=== PATIENT | female | born 1980 | race African-American/Black ===

== ENCOUNTER 2017-09-27 16:05 | Emergency (ER) | payer SELFPAY ==
[2017-09-27] MEDS: IV NORMAL SALINE 1000ML BAG 1,000 ML IV (17:08)
[2017-09-27 17:13] LABS: BILIRUBIN,URINE NEGATIVE (NEG); CLARITY,URINE CLOUDY; COLOR,URINE RED; GLUCOSE,URINE NEGATIVE (NEG); NITRITE,URINE NEGATIVE (NEG); PROTEIN,URINE 30 mg/dL (NEG-TRACE)
[2017-09-27 17:15] LABS: ADD MAN DIFF? NO
[2017-09-27 17:18] LABS: BARBITURATES NEG (NEG); BASO % 1 % (0-3); BENZODIAZEPINES NEG (NEG); CANNABINOIDS POS (NEG); COCAINE POS (NEG); EOS # 0.2 x10^3/uL (0.0-0.7); EOS % 2 % (0-3); HEMATOCRIT 42.2 % (36.0-47.0); HEMOGLOBIN 14.3 g/dL (12.0-15.5); LYMPH % 29 % (24-48); MEAN CORPUSCULAR HEMOGLOBIN 31 pg (25-35); MEAN CORPUSCULAR HGB CONC 34 g/dL (31-37); MEAN CORPUSCULAR VOLUME 90 fL (79-100); METHADONE NEG (NEG); MONO # 0.6 x10^3/uL (0.0-1.1); MONO % 8 % (0-9); NEUT # 4.3 x10^3uL (1.8-7.7); NEUT % 60 % (31-73); OPIATES NEG (NEG); PHENCYCLIDINE NEG (NEG); PLATELET COUNT 238 x10^3/uL (140-400); RED BLOOD COUNT 4.66 x10^6/uL (3.50-5.40); RED CELL DISTRIBUTION WIDTH 15.3 % (11.5-14.5); WHITE BLOOD COUNT 7.1 x10^3/uL (4.0-11.0)
[2017-09-27 17:19] LABS: AMPHETAMINE/METHAMPHETAMINE NEG (NEG); ETHANOL, URINE NEG (NEG)
[2017-09-27 17:29] LABS: ETHANOL < 10 mg/dL (0-10)
[2017-09-27 17:29] LABS: ANION GAP 6 (6-14); BLOOD UREA NITROGEN 8 mg/dL (7-20); BUN/CREATININE RATIO 9 (6-20); CALCIUM 8.7 mg/dL (8.5-10.1); CARBON DIOXIDE 30 mmol/L (21-32); CHLORIDE 106 mmol/L (98-107); CREATININE 0.9 mg/dL (0.6-1.0); GFR 84.3; GLUCOSE 106 mg/dL (70-99); POTASSIUM 3.5 mmol/L (3.5-5.1); SODIUM 142 mmol/L (136-145)
[2017-09-27 17:32] LABS: BACTERIA,URINE MANY /HPF (0-FEW); RBC,URINE TNTC /HPF (0-2); SQUAMOUS EPITHELIAL CELL,UR MANY /LPF; WBC,URINE 0 /HPF (0-4)
[2017-09-27 17:35] LABS: ALBUMIN 3.4 g/dL (3.4-5.0); ALBUMIN/GLOBULIN RATIO 0.8 (1.0-1.7); ALK PHOS 58 U/L (46-116); ALT (SGPT) 17 U/L (14-59); AST (SGOT) 10 U/L (15-37); LIPASE 122 U/L (73-393); TOTAL BILIRUBIN 0.3 mg/dL (0.2-1.0); TOTAL PROTEIN 7.6 g/dL (6.4-8.2)
[2017-09-27 17:38] LABS: TROPONINI < 0.017 ng/mL (0.000-0.055)
[2017-09-27 17:42] LABS: THYROID STIM HORMONE (TSH) 0.978 uIU/mL (0.358-3.74)
[2017-09-27 17:44] LABS: NT-PRO BNP 26 pg/mL (0-124)
[2017-09-27 17:44] LABS: CKMB INDEX 0.4 % (0-4); CKMB MASS 0.8 ng/mL (0.0-3.6); CREATINE KINASE 197 U/L (26-192)
[2017-09-27 18:12] LABS: NEG OBC UR NEG; POS OBC UR POS; U PREG PATIENT NEGATIVE (NEG)
[2017-09-27 19:07] LABS: LACTIC ACID 0.5 mmol/L (0.4-2.0)
== END 2017-09-27 20:06 | disposition home or self-care (01) ==
LOC: ER 20:06
DX: G43.709 Chronic migraine without aura, not intractable, without status migrainosus (principal); F12.10 Cannabis abuse, uncomplicated; F14.10 Cocaine abuse, uncomplicated
CPT/HCPCS: 36415; 70450; 71045; 80053; 80307; 81001; 81025; 82553; 83605; 83690; 83735; 83880; 84443; 84484; 85025; 93005; 99285-25; G0480; J7030

== ENCOUNTER 2018-01-24 04:41 | Emergency (ER) | payer SELFPAY ==
[~2018-01-24] VITALS: Ht 170.2 cm; Wt 77.1 kg
[~2018-01-24 04:41] MED LIST: SUMA50TA3 PO
[2018-01-24 04:54] VITALS: BP 133/81
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
== END 2018-01-24 05:44 | disposition home or self-care (01) ==
LOC: ER 04:41
DX: S62.325A Displaced fracture of shaft of fourth metacarpal bone, left hand, initial encounter for closed fracture (principal); G43.909 Migraine, unspecified, not intractable, without status migrainosus; Z88.8 Allergy status to other drugs, medicaments and biological substances; Z88.6 Allergy status to analgesic agent; Y08.89XA Assault by other specified means, initial encounter; Y93.89 Activity, other specified; Y92.89 Other specified places as the place of occurrence of the external cause; Y99.8 Other external cause status
CPT/HCPCS: 29130; 73130; 99284

== ENCOUNTER 2020-04-28 17:31 | Emergency (ER) | payer SELFPAY ==
[~2020-04-28] VITALS: Ht 170.2 cm; Wt 95.0 kg
[2020-04-28 17:50] VITALS: BP 121/75
[2020-04-28] MEDS ORDERED: HYDR-3164 PO (17:50)
--- NOTE | 2020-04-28 17:51 | PHYS DOC ---
Past Medical History Past Medical History: Migraines Past Surgical History: No Surgical History Smoking Status: Current Every Day Smoker Alcohol Use: None Drug Use: Cocaine, Marijuana General Adult EDM: Chief Complaint: LOWER EXT PAIN HPI: HPI: Patient is a 39 year old female who presents with a proximally 4-day history of left-sided knee pain. Patient denies any trauma but states she has had 4-day history of pain on the left medial knee that has gotten worse over the last 24 hours. Pain is worse with walking and palpation. Patient denies any fever, chills, cough or shortness of breath. Pain is currently 9 out of 10 with movement and improved with rest. Pain is nonradiating. Pain is throbbing in nature. Review of Systems: Review of Systems: Constitutional: Denies fever or chills. [] Eyes: Denies change in visual acuity. [] HENT: Denies nasal congestion or sore throat. [] Respiratory: Denies cough or shortness of breath. [] Cardiovascular: Denies chest pain or edema. [] GI: Denies abdominal pain, nausea, vomiting, bloody stools or diarrhea. [] : Denies dysuria. [] Musculoskeletal: Denies back pain but has left knee pain Integument: Denies rash. [] Neurologic: Denies headache, focal weakness or sensory changes. [] Endocrine: Denies polyuria or polydipsia. [] Lymphatic: Denies swollen glands. [] Psychiatric: Denies depression or anxiety. [] Heart Score: Risk Factors: Risk Factors: DM, Current or recent (<one month) smoker, HTN, HLP, family history of CAD, obesity. Risk Scores: Score 0 - 3: 2.5% MACE over next 6 weeks - Discharge Home Score 4 - 6: 20.3% MACE over next 6 weeks - Admit for Clinical Observation Score 7 - 10: 72.7% MACE over next 6 weeks - Early Invasive Strategies Allergies: Allergies: Allergies Coded Allergies Type Severity Reaction Last Updated Verified guaifenesin Allergy Intermediate 01/24/18 Yes ibuprofen Allergy Intermediate 01/24/18 Yes pseudoephedrine Allergy Intermediate 01/24/18 Yes Physical Exam: PE: Constitutional: Well developed, well nourished, no acute distress, non-toxic appearance. [] HENT: Normocephalic, atraumatic, bilateral external ears normal, no trismus nose normal. [] Eyes: PERRLA, EOMI, conjunctiva normal, no discharge. [] Neck: Normal range of motion, no tenderness, supple, no stridor. [] Cardiovascular:Heart rate regular rhythm, peripheral pulses intact cap refills less than 2 seconds Lungs & Thorax: Bilateral breath sounds clear, no respiratory distress Abdomen: soft, no tenderness, no masses, no pulsatile masses. [] Skin: Warm, dry, no erythema, no rash. [] Back: No tenderness, no CVA tenderness. [] Extremities: , no cyanosis, no clubbing, ROM intact, no edema. [] Mild swelling to the left infrapatellar bursa, more pronounced medially. No significant joint effusion, mild limited range of motion due to pain. No warmth or erythema, neurovascular intact distally Neurologic: Alert and oriented X 3, normal motor function, normal sensory function, no focal deficits noted. [] Psychologic: Affect normal, judgement normal, mood normal. [] EKG: EKG: [] Radiology/Procedures: Radiology/Procedures: [] Course & Med Decision Making: Course & Med Decision Making Pertinent Labs and Imaging studies reviewed. (See chart for details) [] 39-year-old female presents with left knee pain. Patient has what appears to be infrapatellar bursitis on exam. No evidence of septic arthritis. Patient will be treated with pain medicines, ice and Ryan wrap. Patient to follow-up with Ortho. I would like patient be on anti-inflammatories but she has ibuprofen allergy so we will just treat her with pain medicine. Yuriy Disclaimer: Yuriy Disclaimer: This electronic medical record was generated, in whole or in part, using a voice recognition dictation system. Departure Departure Impression: Primary Impression: Infrapatellar bursitis of left knee Disposition: 01 DC HOME SELF CARE/HOMELESS Condition: STABLE Referrals: NO PCP (PCP) RAY ASHLEY II, MD 2-3 days Patient Instructions: Bursitis, Prepatellar Bursitis with Rehab-SportsMed Additional Instructions: EMERGENCY DEPARTMENT GENERAL DISCHARGE INSTRUCTIONS THANK YOU for coming to Emergency Department (ED) today and trusting us with your care. We trust that you had a positive experience in our Emergency Department. If you wish to speak to the department Management you can contact the produce department supervisor at . YOUR FOLLOW UP INSTRUCTIONS ARE FOLLOWS: Do you have a private doctor? If you do not have a private doctor, please ask for a resource list of physicians or clinics that may be able to assist you with follow up care. The Emergency Physician has interpreted your x-rays. The X-ray specialist will also review them. If there is a change in the findings you will be notified in 48 hours when at all possible. A lab test or lab culture may have been done, your results will be reviewed and you will be notified if you need a change in treatment. ADDITIONAL INSTRUCTIONS AND INFORMATION Your care today has been supervised by a physician who is specially trained in emergency care. Many problems require more than one evaluation for a complete diagnosis and treatment. We recommend that you schedule your follow up appointment as recommended to ensure complete treatment of your illness or injury. If you are unable to obtain follow up care and continue to have a problem, or if your condition worsens we recommend that you return to the ED. We are not able to safely determine your condition over the phone nor are we able to give sound medical advice over the phone. For these safety reasons, if you call for medical advice we will ask you to come to the ED for further evaluation If you have any questions regarding these discharge instructions please call the ED at . SAFETY INFORMATION In the interest of safety, wellness, and injury prevention; we encourage you to wear your seatbelt, if you smoke; quit smoking, and we encourage your family to use protective helmet for bicycling and other sporting events that present an increased risk for head injury. IF YOUR SYMPTOMS WORSEN OR NEW SYMPTOMS DEVELOP, OR YOU HAVE CONCERNS ABOUT YOUR CONDITION; OR IF YOUR CONDITION WORSENS WHILE YOU ARE WAITING FOR YOUR FOLLOW UP FARHAN OINTMENT; EITHER CONTACT YOUR PRIMARY CARE DOCTOR, THE PHYSICIAN WHOSE NAME AND NUMBER YOU WERE GIVEN, OR RETURN TO THE ED IMMEDIATELY. Scripts Hydrocodone/Apap 5-325 (NORCO 5-325 TABLET) 1 Each Tablet 1-2 EACH PO PRN Q6HRS PRN for PAIN, #12 as needed for pain Prov: SUKHDEV VAUGHN MD 04/28/20 SUKHDEV VAUGHN MD Apr 28, 2020 17:50
== END 2020-04-28 18:00 | disposition home or self-care (01) ==
LOC: ER 17:31
DX: M70.52 Other bursitis of knee, left knee (principal); Y93.89 Activity, other specified; F17.200 Nicotine dependence, unspecified, uncomplicated; G43.909 Migraine, unspecified, not intractable, without status migrainosus; Z88.8 Allergy status to other drugs, medicaments and biological substances
CPT/HCPCS: 99283

== ENCOUNTER 2020-09-23 18:17 | Emergency (ER) | payer OTHER ==
[~2020-09-23] VITALS: Ht 170.2 cm; Wt 109.1 kg
[~2020-09-23 18:17] MED LIST changes: +HYDR-3164 PO
[2020-09-23] MEDS ORDERED: CYCL10TA2 PO ×2 (20:36→20:50)
[2020-09-23] MEDS ORDERED: PRED20TA PO ×2 (20:36→20:50)
--- NOTE | 2020-09-23 20:36 | PHYS DOC ---
Past Medical History Past Medical History: Migraines Additional Past Medical Histor: RECOVERING NARCOTIC ADDICTION Past Surgical History: No Surgical History Smoking Status: Current Every Day Smoker Alcohol Use: None Drug Use: Cocaine, Marijuana General Adult EDM: Chief Complaint: BACK PAIN OR INJURY HPI: HPI: Patient is a 40 year old female who is right-hand dominant presents with a chief complaint of left shoulder pain. Patient states yesterday morning she reached down for an object and suddenly had some pain in her left shoulder. Rober garcía has pain posterior left shoulder with range of motion. Area is tender to palpation. She denies any associated numbness or tingling. Patient has used 800 mg ibuprofen with no relief. Patient with no other complaints. Review of Systems: Review of Systems: Review of systems: Constitutional symptoms- No fever, no chills. Eyes- No Discharge, No Visual Loss Respiratory symptoms- No shortness of breath, No wheezing, No Dyspnea on Exertion Cardiovascular Systems; No chest pain, No Palpitations, No syncope Gastrointestinal symptoms: NO abdominal pain, no nausea, no vomiting or diarrhea. Genitourinary symptoms: No dysuria. Musculoskeletal symptoms: No back pain Positive extremity pain. NEUROLOGICAL Symptoms: No headache, no generalized weakness; No focal Weakness Heart Score: C/O Chest Pain: N/A Risk Factors: Risk Factors: DM, Current or recent (<one month) smoker, HTN, HLP, family history of CAD, obesity. Risk Scores: Score 0 - 3: 2.5% MACE over next 6 weeks - Discharge Home Score 4 - 6: 20.3% MACE over next 6 weeks - Admit for Clinical Observation Score 7 - 10: 72.7% MACE over next 6 weeks - Early Invasive Strategies Allergies: Allergies: Allergies Coded Allergies Type Severity Reaction Last Updated Verified guaifenesin Allergy Intermediate 01/24/18 Yes ibuprofen Allergy Intermediate 01/24/18 Yes pseudoephedrine Allergy Intermediate 01/24/18 Yes Physical Exam: PE: General: alert, no acute distress. Skin: warm, dry and intact. Head:: Normocephalic, atraumatic. Neck: Trachea midline. Eyes: EOMI, Normal conjunctiva, No drainage CARDIOVASCULAR: Regular rate and rhythm RESPIRATORY: No respiratory distress Back: Full range of motion. MUSCULOSKELETAL: Full range of motion of bilateral upper and lower extremities. Undernourished to palpation around left scapula. Tenderness is paraspinal muscles. Pain with range of motion GASTROINTESTINAL: Abdomen soft without rebound or guarding. NEUROLOGICAL: Alert and noted to person, place and time. No neurological deficits observed Psychiatric: Cooperative. Normal judgment Current Patient Data: Vital Signs: Vital Signs Date Time Temp Pulse Resp B/P (MAP) Pulse Ox O2 Delivery O2 Flow Rate FiO2 09/23/20 19:39 98.5 76 20 118/78 (91) 100 Room Air 98.5 EKG: EKG: [] Radiology/Procedures: Radiology/Procedures: [] Course & Med Decision Making: Course & Med Decision Making Pertinent Labs and Imaging studies reviewed. (See chart for details) [] Patient requesting nonnarcotic medications. Patient advised to continue ibuprofen add Tylenol will prescribe Flexeril and prednisone Yuriy Disclaimer: Yuriy Disclaimer: This electronic medical record was generated, in whole or in part, using a voice recognition dictation system. Departure Departure Impression: Primary Impression: Back pain Additional Impression: Shoulder pain Disposition: 01 HOME / SELF CARE / HOMELESS Referrals: NO PCP (PCP) Patient Instructions: Back Pain, Adult, Shoulder Pain Scripts Cyclobenzaprine Hcl (CYCLOBENZAPRINE HCL) 10 Mg Tablet 1 TAB PO TID, #30 TAB Prov: DIONISIOCIERRA Bell DO 09/23/20 Prednisone (PREDNISONE) 20 Mg Tablet 1 TAB PO UD for 12 Days, #15 TAB Take 2 tabs days 1,2,3 1.5 tabs days 3,4,5 1 tab days 6,7,8 0.5 tab days 9,10,11 Prov: DIONISIOCIERRA I DO 09/23/20 Prednisone (PREDNISONE) 20 Mg Tablet 1 TAB PO UD for 12 Days, #15 TAB Take 2 tabs days 1,2,3 1.5 tabs days 3,4,5 1 tab days 6,7,8 0.5 tab days 9,10,11 Prov: DIONISIOCIERRA Bell DO 09/23/20 Cyclobenzaprine Hcl (CYCLOBENZAPRINE HCL) 10 Mg Tablet 1 TAB PO TID, #30 TAB Prov: DIONISIOCIERRA I DO 09/23/20 DIONISIOCIERRA Bell DO September 23, 2020 20:36
[2020-09-23 20:56] VITALS: BP 118/78
== END 2020-09-23 20:58 | disposition home or self-care (01) ==
LOC: ER 18:17
DX: M25.512 Pain in left shoulder (principal); M54.9 Dorsalgia, unspecified; F12.10 Cannabis abuse, uncomplicated; F14.10 Cocaine abuse, uncomplicated; G43.909 Migraine, unspecified, not intractable, without status migrainosus
CPT/HCPCS: 99283